=== PATIENT | male | born 1985 | race Caucasian/White ===

== ENCOUNTER 2017-01-13 23:12 | Emergency (ER) | payer SELFPAY ==
[~2017-01-13] VITALS: Ht 188 cm; Wt 81.8 kg
[~2017-01-13 23:12] MED LIST: ASA LO-DOSE81 MG OR; BACTRIM DS1 TAB PO; MOTRIN800 MG PO; TYLENOL # 31 TA1 PO; ULTRAM50 M1 PO
[2017-01-14 03:30] VITALS: BP 100/62
== END 2017-01-14 03:31 | DRG 897 ==
LOC: ED 23:12
DX: F15.90 Other stimulant use, unspecified, uncomplicated (principal)

== ENCOUNTER 2021-07-14 14:39 | Emergency (ER) | payer SELFPAY ==
[~2021-07-14] VITALS: Ht 188 cm; Wt 82.0 kg
[2021-07-14 14:59] VITALS: BP 117/76
[2021-07-14 15:15] VITALS: BP 101/65
[2021-07-14 15:30] VITALS: BP 103/68
[2021-07-14 17:35] VITALS: BP 103/68
== END 2021-07-14 17:35 | disposition home or self-care (01) | DRG 556 ==
LOC: ED 14:39
DX: M25.562 Pain in left knee (principal); F17.200 Nicotine dependence, unspecified, uncomplicated

== ENCOUNTER 2022-09-08 16:35 | Emergency (ER) | payer SELFPAY ==
[~2022-09-08] VITALS: Ht 188 cm; Wt 81.6 kg
[2022-09-08 17:01] VITALS: BP 129/94
[2022-09-08 17:15] VITALS: BP 114/81
[2022-09-08] MEDS ORDERED: PENICILLN VK500 MG PO (17:17)
[2022-09-08] MEDS ORDERED: NAPROXEN500 MG PO (17:17)
[2022-09-08 17:30] VITALS: BP 123/82
[2022-09-08 17:45] VITALS: BP 133/88
[2022-09-08 18:00] VITALS: BP 119/70
[2022-09-08 18:16] VITALS: BP 111/75
== END 2022-09-08 18:16 | disposition home or self-care (01) | DRG 158 ==
LOC: ED 16:35
PROC: 0C9 Mouth and Throat, Drainage (ICD-10-PCS; principal; 2022-09-08)
DX: K05.219 Aggressive periodontitis, localized, unspecified severity (principal); K91.71 Accidental puncture and laceration of a digestive system organ or structure during a digestive system procedure; F17.200 Nicotine dependence, unspecified, uncomplicated; Y83.8 Other surgical procedures as the cause of abnormal reaction of the patient, or of later complication, without mention of misadventure at the time of the procedure